=== PATIENT | female | born 1995 | race Caucasian/White ===

== ENCOUNTER 2018-04-25 18:48 | Emergency (ER) | payer MEDICAID ==
[2018-04-25] MEDS: KETOROLAC 30 MG INJ IV (20:56)
[2018-04-25] MEDS: LACTATED RINGER'S 1,000 ML IV (22:00)
[2018-04-25] MEDS: ONDANSETRON 4 MG INJ IV (22:01)
[2018-04-25 22:32] LABS: ADD MAN DIFF? NO
[2018-04-25 22:34] LABS: WHITE BLOOD COUNT 11.3 10^3/ul (4.8-10.8)
[2018-04-25 22:34] LABS: BASOPHILS % 0.2 % (0.0-2.0); EOSINOPHILS # 0.2 10^3/ul (0.0-0.5); EOSINOPHILS % 1.6 % (0.0-7.0); HEMATOCRIT 44.2 % (37.0-47.0); HEMOGLOBIN 14.8 g/dl (12.0-16.0); LYMPHOCYTES # 2.3 10^3/ul (0.8-2.9); LYMPHOCYTES % 20.2 % (15.0-51.0); MEAN CORPUSCULAR HEMOGLOBIN 29.5 pg (29.0-33.0); MEAN CORPUSCULAR HGB CONC 33.5 g/dl (32.0-37.0); MEAN PLATELET VOLUME 10.6 fl (7.4-10.4); MONOCYTE # 0.7 10^3/ul (0.3-0.9); MONOCYTES % 5.8 % (0.0-11.0); NEUTROPHIL # 8.2 10^3/ul (1.6-7.5); NEUTROPHILS % 71.8 % (39.0-77.0); PLATELET COUNT 243 10^3/UL (140-415); RED BLOOD COUNT 5.02 10^6/ul (4.20-5.40); RED CELL DISTRIBUTION WIDTH 12.3 % (11.5-14.5)
[2018-04-25 22:49] LABS: ADD UMIC YES; UR ASCORBIC ACID NEGATIVE (NEGATIVE); UR BACTERIA FEW /HPF (NONE SEEN); UR BILIRUBIN (Dip) NEGATIVE (NEGATIVE); UR BLOOD (Dip) NEGATIVE (NEGATIVE); UR CLARITY SLIGHTLY CLOUDY (CLEAR); UR COLOR YELLOW (YELLOW); UR GLUCOSE (Dip) NEGATIVE (NEGATIVE); UR KETONES (Dip) NEGATIVE (NEGATIVE); UR LEUKOCYTE ESTERASE (Dip) TRACE Leu/ul (NEGATIVE); UR MUCUS MANY /HPF (NONE SEEN); UR NITRITE (Dip) NEGATIVE (NEGATIVE); UR RBC 2 /HPF (0-5); UR SPECIFIC GRAVITY (Dip) 1.029 (1.003-1.030); UR SQUAMOUS EPITHELIAL CELL MODERATE /HPF (FEW); UR TOTAL PROTEIN (Dip) NEGATIVE (NEGATIVE); UR UROBILINOGEN (Dip) 1+ mg/dL (NEGATIVE); UR WBC 3 /HPF (0-5)
[2018-04-25 22:53] LABS: ALANINE AMINOTRANSFERASE 53 IU/L (13-69); ALBUMIN 4.8 g/dl (3.3-4.9); ALKALINE PHOSPHATASE 78 IU/L (42-121); ANION GAP 14 (8-16); ASPARTATE AMINO TRANSFERASE 41 IU/L (15-46); BILIRUBIN,INDIRECT 0.4 mg/dl (0-1.1); BILIRUBIN,TOTAL 0.4 mg/dl (0.2-1.3); BLOOD UREA NITROGEN 12 mg/dl (7-20); CARBON DIOXIDE 25 mmol/L (21-31); CHLORIDE 108 mmol/L (97-110); CREATININE 0.68 mg/dl (0.44-1.00); GLUCOSE 93 mg/dl (70-220); LIPASE 48 U/L (23-300); POTASSIUM 3.6 mmol/L (3.5-5.1); SODIUM 143 mmol/L (135-144)
== END 2018-04-25 23:51 | disposition home or self-care (01) ==
LOC: FTE 18:48
DX: N39.0 Urinary tract infection, site not specified (principal)
CPT/HCPCS: 36415; 76705; 80053; 81001; 81025; 83690; 85025; 96374; 96375; 99285-25

== ENCOUNTER 2018-07-12 18:35 | Emergency (ER) | payer MEDICAID ==
[2018-07-12 19:28] LABS: ADD MAN DIFF? NO
[2018-07-12 19:32] LABS: WHITE BLOOD COUNT 11.5 10^3/ul (4.8-10.8)
[2018-07-12 19:32] LABS: BASOPHILS % 0.3 % (0.0-2.0); EOSINOPHILS # 0.1 10^3/ul (0.0-0.5); EOSINOPHILS % 0.9 % (0.0-7.0); HEMATOCRIT 42.2 % (37.0-47.0); HEMOGLOBIN 13.9 g/dl (12.0-16.0); LYMPHOCYTES % 26.4 % (15.0-51.0); MEAN CORPUSCULAR HGB CONC 32.9 g/dl (32.0-37.0); MEAN CORPUSCULAR VOLUME 88.1 fl (82.0-101.0); MEAN PLATELET VOLUME 10.1 fl (7.4-10.4); MONOCYTE # 0.6 10^3/ul (0.3-0.9); MONOCYTES % 5.5 % (0.0-11.0); NEUTROPHIL # 7.7 10^3/ul (1.6-7.5); NEUTROPHILS % 66.6 % (39.0-77.0); PLATELET COUNT 260 10^3/UL (140-415); RED BLOOD COUNT 4.79 10^6/ul (4.20-5.40); RED CELL DISTRIBUTION WIDTH 12.1 % (11.5-14.5)
[2018-07-12 19:39] LABS: ADD UMIC YES; UR ASCORBIC ACID NEGATIVE (NEGATIVE); UR BACTERIA FEW /HPF (NONE SEEN); UR BILIRUBIN (Dip) NEGATIVE (NEGATIVE); UR BLOOD (Dip) 3+ mg/dL (NEGATIVE); UR CLARITY CLOUDY (CLEAR); UR COLOR YELLOW (YELLOW); UR GLUCOSE (Dip) NEGATIVE (NEGATIVE); UR KETONES (Dip) NEGATIVE (NEGATIVE); UR LEUKOCYTE ESTERASE (Dip) NEGATIVE Leu/ul (NEGATIVE); UR NITRITE (Dip) NEGATIVE (NEGATIVE); UR RBC 5 /HPF (0-5); UR SPECIFIC GRAVITY (Dip) 1.026 (1.003-1.030); UR SQUAMOUS EPITHELIAL CELL MODERATE /HPF (FEW); UR TOTAL PROTEIN (Dip) NEGATIVE (NEGATIVE); UR UROBILINOGEN (Dip) 1+ mg/dL (NEGATIVE); UR WBC 12 /HPF (0-5)
[2018-07-12 19:51] LABS: INR 0.94; PARTIAL THROMBOPLASTIN TIME 26.6 Sec (23.0-35.0); PROTIME 12.7 Sec (11.9-14.9)
[2018-07-12 19:52] LABS: ALANINE AMINOTRANSFERASE 32 IU/L (13-69); ALBUMIN 4.2 g/dl (3.3-4.9); ALBUMIN/GLOBULIN RATIO 1.13; ALKALINE PHOSPHATASE 79 IU/L (42-121); ANION GAP 8 (5-13); ASPARTATE AMINO TRANSFERASE 28 IU/L (15-46); BILIRUBIN,INDIRECT 0.3 mg/dl (0-1.1); BILIRUBIN,TOTAL 0.3 mg/dl (0.2-1.3); BLOOD UREA NITROGEN 18 mg/dl (7-20); CALCIUM 9.7 mg/dl (8.4-10.2); CARBON DIOXIDE 29 mmol/L (21-31); CHLORIDE 104 mmol/L (97-110); CREATININE 0.99 mg/dl (0.44-1.00); GLUCOSE 100 mg/dl (70-220); LIPASE 58 U/L (23-300); POTASSIUM 3.9 mmol/L (3.5-5.1); SODIUM 141 mmol/L (135-144); TOTAL PROTEIN 7.9 g/dl (6.1-8.1)
== END 2018-07-12 20:38 | disposition home or self-care (01) ==
LOC: FTE 18:35
DX: N93.9 Abnormal uterine and vaginal bleeding, unspecified (principal); N92.1 Excessive and frequent menstruation with irregular cycle
CPT/HCPCS: 76830; 76856; 80053; 81001; 81025; 83690; 85025; 85610; 85730; 87086; 99284-25

== ENCOUNTER 2018-08-10 05:52 | Emergency (ER) | payer MEDICAID ==
[2018-08-10] MEDS: FAMOTIDINE 20 MG INJ IV (06:29)
[2018-08-10] MEDS: ONDANSETRON 4 MG INJ IV ×2 (06:29→09:26)
[2018-08-10] MEDS: SOD CHLORIDE 0.9% 1,000 ML IV (06:29)
[2018-08-10 06:33] LABS: ADD MAN DIFF? NO
[2018-08-10 06:34] LABS: WHITE BLOOD COUNT 12.4 10^3/ul (4.8-10.8)
[2018-08-10 06:34] LABS: BASOPHILS % 0.2 % (0.0-2.0); EOSINOPHILS # 0.2 10^3/ul (0.0-0.5); EOSINOPHILS % 1.4 % (0.0-7.0); HEMATOCRIT 44.3 % (37.0-47.0); HEMOGLOBIN 14.7 g/dl (12.0-16.0); LYMPHOCYTES # 1.3 10^3/ul (0.8-2.9); LYMPHOCYTES % 10.1 % (15.0-51.0); MEAN CORPUSCULAR HEMOGLOBIN 29.3 pg (29.0-33.0); MEAN CORPUSCULAR HGB CONC 33.2 g/dl (32.0-37.0); MEAN CORPUSCULAR VOLUME 88.4 fl (82.0-101.0); MEAN PLATELET VOLUME 9.7 fl (7.4-10.4); MONOCYTE # 0.7 10^3/ul (0.3-0.9); MONOCYTES % 5.8 % (0.0-11.0); NEUTROPHIL # 10.2 10^3/ul (1.6-7.5); PLATELET COUNT 253 10^3/UL (140-415); RED BLOOD COUNT 5.01 10^6/ul (4.20-5.40); RED CELL DISTRIBUTION WIDTH 12.2 % (11.5-14.5)
[2018-08-10] MEDS: KETOROLAC 30 MG INJ IV (06:42)
[2018-08-10 06:48] LABS: ADD UMIC YES; UR ASCORBIC ACID NEGATIVE (NEGATIVE); UR BACTERIA FEW /HPF (NONE SEEN); UR BILIRUBIN (Dip) NEGATIVE (NEGATIVE); UR BLOOD (Dip) NEGATIVE (NEGATIVE); UR CLARITY SLIGHTLY CLOUDY (CLEAR); UR COLOR YELLOW (YELLOW); UR GLUCOSE (Dip) NEGATIVE (NEGATIVE); UR KETONES (Dip) NEGATIVE (NEGATIVE); UR LEUKOCYTE ESTERASE (Dip) 1+ Leu/ul (NEGATIVE); UR MUCUS FEW /HPF (NONE SEEN); UR NITRITE (Dip) NEGATIVE (NEGATIVE); UR RBC 4 /HPF (0-5); UR SPECIFIC GRAVITY (Dip) 1.023 (1.003-1.030); UR SQUAMOUS EPITHELIAL CELL FEW /HPF (FEW); UR TOTAL PROTEIN (Dip) NEGATIVE (NEGATIVE); UR UROBILINOGEN (Dip) NEGATIVE (NEGATIVE); UR WBC 5 /HPF (0-5)
[2018-08-10 06:57] LABS: INR 0.91; PROTIME 12.3 Sec (11.9-14.9)
[2018-08-10 06:58] LABS: ALANINE AMINOTRANSFERASE 32 IU/L (13-69); ALBUMIN 4.4 g/dl (3.3-4.9); ALBUMIN/GLOBULIN RATIO 1.22; ALKALINE PHOSPHATASE 96 IU/L (42-121); AMYLASE 81 U/L (11-123); ANION GAP 10 (5-13); ASPARTATE AMINO TRANSFERASE 31 IU/L (15-46); BILIRUBIN,INDIRECT 0.5 mg/dl (0-1.1); BILIRUBIN,TOTAL 0.5 mg/dl (0.2-1.3); BLOOD UREA NITROGEN 17 mg/dl (7-20); CALCIUM 8.4 mg/dl (8.4-10.2); CARBON DIOXIDE 25 mmol/L (21-31); CHLORIDE 106 mmol/L (97-110); CREATININE 0.61 mg/dl (0.44-1.00); Estimated GFR > 60 mL/min (>60); GLUCOSE 105 mg/dl (70-220); LIPASE 39 U/L (23-300); PARTIAL THROMBOPLASTIN TIME 27.5 Sec (23.0-35.0); POTASSIUM 4.2 mmol/L (3.5-5.1); SODIUM 141 mmol/L (135-144)
[2018-08-10] MEDS: DIPHENOXYLATE/ATROPINE TAB PO (07:20)
[2018-08-10] MEDS: SOD CHLORIDE 0.9% 100 ML (07:30)
[2018-08-10] MEDS: IOHEXOL 300MG/ML 150 ML BTL (07:30)
[2018-08-10] MEDS: METOCLOPRAMIDE 10 MG INJ IV (08:20)
[2018-08-10] MEDS: morphine 4 MG/ML VIAL IV (09:26)
== END 2018-08-10 09:42 | disposition home or self-care (01) ==
LOC: FTE 05:52
DX: R11.10 Vomiting, unspecified (principal); R19.7 Diarrhea, unspecified; E86.0 Dehydration
CPT/HCPCS: 36415; 74177; 76856; 80053; 81001; 81025; 82150; 83690; 85025; 85610; 85730; 96361; 96374; 96375; 96376; 99285-25

== ENCOUNTER 2018-12-28 18:40 | Observation (INO) | payer MEDICAID ==
[2018-12-28 20:14] LABS: ADD MAN DIFF? NO
[2018-12-28 20:25] LABS: ADD UMIC NO; UR ASCORBIC ACID NEGATIVE (NEGATIVE); UR BILIRUBIN (Dip) NEGATIVE (NEGATIVE); UR BLOOD (Dip) NEGATIVE (NEGATIVE); UR CLARITY CLEAR (CLEAR); UR COLOR STRAW (YELLOW); UR GLUCOSE (Dip) NEGATIVE (NEGATIVE); UR KETONES (Dip) NEGATIVE (NEGATIVE); UR LEUKOCYTE ESTERASE (Dip) NEGATIVE Leu/ul (NEGATIVE); UR NITRITE (Dip) NEGATIVE (NEGATIVE); UR SPECIFIC GRAVITY (Dip) 1.005 (1.003-1.030); UR TOTAL PROTEIN (Dip) NEGATIVE (NEGATIVE); UR UROBILINOGEN (Dip) NEGATIVE (NEGATIVE)
[2018-12-28 20:34] LABS: ALANINE AMINOTRANSFERASE 19 IU/L (13-69); ALBUMIN 3.8 g/dl (3.3-4.9); ALBUMIN/GLOBULIN RATIO 1.18; ALKALINE PHOSPHATASE 73 IU/L (42-121); ANION GAP 10 (5-13); ASPARTATE AMINO TRANSFERASE 20 IU/L (15-46); BILIRUBIN,INDIRECT 0.2 mg/dl (0-1.1); BILIRUBIN,TOTAL 0.2 mg/dl (0.2-1.3); BLOOD UREA NITROGEN 9 mg/dl (7-20); CALCIUM 9.3 mg/dl (8.4-10.2); CARBON DIOXIDE 24 mmol/L (21-31); CHLORIDE 104 mmol/L (97-110); CREATININE 0.48 mg/dl (0.44-1.00); Estimated GFR > 60 mL/min (>60); GLUCOSE 83 mg/dl (70-220); LIPASE 59 U/L (23-300); POTASSIUM 4.1 mmol/L (3.5-5.1); SODIUM 138 mmol/L (135-144)
[2018-12-28 20:36] LABS: WHITE BLOOD COUNT 10.5 10^3/ul (4.8-10.8)
[2018-12-28 20:36] LABS: BASOPHILS % 0.4 % (0.0-2.0); EOSINOPHILS # 0.1 10^3/ul (0.0-0.5); EOSINOPHILS % 0.8 % (0.0-7.0); HEMATOCRIT 36.4 % (37.0-47.0); HEMOGLOBIN 12.3 g/dl (12.0-16.0); LYMPHOCYTES % 18.7 % (15.0-51.0); MEAN CORPUSCULAR HEMOGLOBIN 29.7 pg (29.0-33.0); MEAN CORPUSCULAR HGB CONC 33.8 g/dl (32.0-37.0); MEAN CORPUSCULAR VOLUME 87.9 fl (82.0-101.0); MEAN PLATELET VOLUME 10.1 fl (7.4-10.4); MONOCYTE # 0.7 10^3/ul (0.3-0.9); MONOCYTES % 6.4 % (0.0-11.0); NEUTROPHIL # 7.7 10^3/ul (1.6-7.5); NEUTROPHILS % 73.4 % (39.0-77.0); PLATELET COUNT 253 10^3/UL (140-415); RED BLOOD COUNT 4.14 10^6/ul (4.20-5.40); RED CELL DISTRIBUTION WIDTH 12.2 % (11.5-14.5)
[2018-12-28 20:44] LABS: TROPONIN-I < 0.012 ng/ml (0.000-0.120)
[2018-12-28] MEDS ORDERED: IOHEXOL 100 ML (21:02)
[2018-12-28] MEDS ORDERED: SOD CHLORIDE 0.9% 100 ML (21:02)
[2018-12-28] MEDS ORDERED: BISACODYL (EC) 5 MG TAB PO (23:30)
[2018-12-28] MEDS: SOD CHLORIDE 0.9% 500 ML IV (23:30)
[2018-12-28] MEDS ORDERED: DOCUSATE SODIUM 100 MG CAP PO (23:30)
[2018-12-28] MEDS ORDERED: ONDANSETRON 4 MG INJ IV (23:30)
[2018-12-28] MEDS ORDERED: NACL 0.9% 3 ML SYG IV (23:30)
[2018-12-28] MEDS ORDERED: ACETAMINOPHEN 325 MG TAB PO ×2 (23:30)
[2018-12-29 00:02] LABS: CREATINE KINASE 70 IU/L (23-200)
[2018-12-29 00:15] LABS: CK INDEX 0.6; CK-MB 0.45 ng/ml (0.0-2.4); TROPONIN-I < 0.012 ng/ml (0.000-0.120)
[2018-12-29 06:24] LABS: ADD MAN DIFF? NO
[2018-12-29 06:37] LABS: BASOPHILS % 0.3 % (0.0-2.0); EOSINOPHILS # 0.1 10^3/ul (0.0-0.5); EOSINOPHILS % 0.9 % (0.0-7.0); HEMATOCRIT 34.6 % (37.0-47.0); HEMOGLOBIN 11.8 g/dl (12.0-16.0); LYMPHOCYTES # 1.8 10^3/ul (0.8-2.9); LYMPHOCYTES % 18.1 % (15.0-51.0); MEAN CORPUSCULAR HEMOGLOBIN 30.1 pg (29.0-33.0); MEAN CORPUSCULAR HGB CONC 34.1 g/dl (32.0-37.0); MEAN CORPUSCULAR VOLUME 88.3 fl (82.0-101.0); MEAN PLATELET VOLUME 10.4 fl (7.4-10.4); MONOCYTE # 0.5 10^3/ul (0.3-0.9); MONOCYTES % 5.4 % (0.0-11.0); NEUTROPHIL # 7.3 10^3/ul (1.6-7.5); NEUTROPHILS % 74.8 % (39.0-77.0); PLATELET COUNT 239 10^3/UL (140-415); RED BLOOD COUNT 3.92 10^6/ul (4.20-5.40); RED CELL DISTRIBUTION WIDTH 12.2 % (11.5-14.5)
[2018-12-29 06:37] LABS: WHITE BLOOD COUNT 9.8 10^3/ul (4.8-10.8)
[2018-12-29 06:55] LABS: ALBUMIN/GLOBULIN RATIO 1.22; ANION GAP 11 (5-13); BILIRUBIN,TOTAL 0.2 mg/dl (0.2-1.3); CHOL/HDL RATIO 3.7 RATIO; Estimated GFR > 60 mL/min (>60); LDL CHOLESTEROL,CALCULATED 97 mg/dl
[2018-12-29 06:57] LABS: TROPONIN-I < 0.012 ng/ml (0.000-0.120)
[2018-12-29 07:02] LABS: ALANINE AMINOTRANSFERASE 13 IU/L (13-69); ALBUMIN 3.3 g/dl (3.3-4.9); ALKALINE PHOSPHATASE 60 IU/L (42-121); ASPARTATE AMINO TRANSFERASE 17 IU/L (15-46); BILIRUBIN,INDIRECT 0.2 mg/dl (0-1.1); BLOOD UREA NITROGEN 8 mg/dl (7-20); CARBON DIOXIDE 22 mmol/L (21-31); CHLORIDE 105 mmol/L (97-110); CHOLESTEROL 179 mg/dl (100-200); CK INDEX 0.8; CREATINE KINASE 53 IU/L (23-200); CREATININE 0.49 mg/dl (0.44-1.00); GLUCOSE 97 mg/dl (70-220); HDL CHOLESTEROL 48 mg/dl (33-83); MAGNESIUM 1.7 mg/dl (1.7-2.5); POTASSIUM 3.7 mmol/L (3.5-5.1); SODIUM 138 mmol/L (135-144); TRIGLYCERIDES 171 mg/dl (0-149)
[2018-12-29 08:56] LABS: HEMOGLOBIN A1C 5.2 % (0-5.9)
[2018-12-29] MEDS: SOD CHLORIDE 0.9% 500 ML IV (10:35)
== END 2018-12-30 12:15 | disposition home or self-care (01) ==
LOC: TEL 23:08 → FTE 18:40
DX: O26.892 Other specified pregnancy related conditions, second trimester (principal); Z3A.18 18 weeks gestation of pregnancy; R55 Syncope and collapse; R06.02 Shortness of breath; R07.9 Chest pain, unspecified
CPT/HCPCS: 36415; 71045; 71275; 76805; 80053; 80061; 81003; 82550; 82553; 83036; 83690; 83735; 84443; 84484; 85025; 93005; 93306; 97161; 99285-25; G0378

== ENCOUNTER 2019-05-18 14:14 | Outpatient (CLI) | payer MEDICAID | END 2019-05-18 16:40 | disposition home or self-care (01) | LOC: OBT 14:14 → L-D 14:15 → OBT 16:40 | DX: O62.9 Abnormality of forces of labor, unspecified (principal); Z3A.38 38 weeks gestation of pregnancy | CPT/HCPCS: 76815 ==

== ENCOUNTER 2019-05-19 12:05 | Outpatient (CLI) | payer MEDICAID ==
[2019-05-19] MEDS: ACETAMINOPHEN 500 MG TAB PO (14:45)
== END 2019-05-19 15:10 | disposition home or self-care (01) ==
LOC: OBT 12:05 → L-D 12:05 → OBT 15:10
DX: O62.9 Abnormality of forces of labor, unspecified (principal); Z3A.38 38 weeks gestation of pregnancy
CPT/HCPCS: 76818

== ENCOUNTER 2019-05-24 07:12 | Inpatient (IN) | payer MEDICAID ==
[2019-05-24 09:33] LABS: RUPTURE FETAL MEMBRANES NEGATIVE (NEGATIVE)
[2019-05-24] MEDS ORDERED: METHYLERGONOVINE 0.2 MG INJ IM (10:00)
[2019-05-24] MEDS ORDERED: OXYTOCIN 30 UNITS/LR 500 ML IV ×2 (10:00)
[2019-05-24] MEDS ORDERED: LIDOCAINE 1% (MPF) 30 ML INJ INJ (10:00)
[2019-05-24] MEDS ORDERED: BUTORPHANOL 2 MG INJ IV ×2 (10:00)
[2019-05-24] MEDS ORDERED: MISOPROSTOL 200 MCG TAB PR (10:00)
[2019-05-24] MEDS ORDERED: CARBOPROST 250 MCG INJ IM (10:00)
[2019-05-24] MEDS: LACTATED RINGER'S 1,000 ML IV ×4 (11:14→21:06)
[2019-05-24 11:25] LABS: ADD MAN DIFF? NO
[2019-05-24 11:27] LABS: WHITE BLOOD COUNT 8.5 10^3/ul (4.8-10.8)
[2019-05-24 11:27] LABS: BASOPHILS % 0.4 % (0.0-2.0); EOSINOPHILS % 0.5 % (0.0-7.0); HEMOGLOBIN 11.5 g/dl (12.0-16.0); LYMPHOCYTES # 1.5 10^3/ul (0.8-2.9); LYMPHOCYTES % 18.1 % (15.0-51.0); MEAN CORPUSCULAR HEMOGLOBIN 26.2 pg (29.0-33.0); MEAN CORPUSCULAR HGB CONC 31.1 g/dl (32.0-37.0); MEAN CORPUSCULAR VOLUME 84.3 fl (82.0-101.0); MEAN PLATELET VOLUME 10.3 fl (7.4-10.4); MONOCYTE # 0.5 10^3/ul (0.3-0.9); MONOCYTES % 5.9 % (0.0-11.0); NEUTROPHIL # 6.4 10^3/ul (1.6-7.5); NEUTROPHILS % 74.5 % (39.0-77.0); PLATELET COUNT 248 10^3/UL (140-415); RED BLOOD COUNT 4.39 10^6/ul (4.20-5.40); RED CELL DISTRIBUTION WIDTH 13.8 % (11.5-14.5)
[2019-05-24 11:47] LABS: PROTIME 12.3 Sec (11.9-14.9)
[2019-05-24 11:48] LABS: PARTIAL THROMBOPLASTIN TIME 25.8 Sec (23.0-35.0)
[2019-05-24 12:48] LABS: HEPATITIS B SURFACE ANTIGEN NEGATIVE (NEGATIVE)
[2019-05-24] MEDS: OXYTOCIN 30 UNITS/LR 500 ML IV (12:50)
[2019-05-24 15:36] LABS: RAPID PLASMA REAGIN NONREACTIVE (NR)
[2019-05-24] MEDS ORDERED: FENTAnyl 2MCG/ML-ROPIV 0.2% 100 ML (20:54)
[2019-05-24] MEDS ORDERED: NALOXONE (0.4 MG/ML) INJ IV (21:30)
[2019-05-24] MEDS ORDERED: FENTAnyl 2MCG/ML-ROPIV 0.2% 100 ML BAG EPI (21:30)
[2019-05-25] MEDS: OXYTOCIN 30 UNITS/LR 500 ML IV ×3 (03:44→16:35)
[2019-05-25] MEDS ORDERED: MISOPROSTOL 200 MCG TAB PR (04:00)
[2019-05-25] MEDS ORDERED: CARBOPROST 250 MCG INJ IM (04:00)
[2019-05-25] MEDS ORDERED: OXYTOCIN 30 UNITS/LR 500 ML IV (04:00)
[2019-05-25] MEDS ORDERED: METHYLERGONOVINE 0.2 MG INJ IM (04:00)
[2019-05-25] MEDS: LACTATED RINGER'S 1,000 ML IV* ×3 (04:17→20:00)
[2019-05-25] MEDS: IBUPROFEN 600 MG TAB PO ×3 (06:39→17:15)
[2019-05-25] MEDS: BENZOCAINE 20% 56 ML SPRAY TOP (06:40)
[2019-05-25] MEDS: HYDROCODONE/APAP (5/325) TAB PO ×3 (06:40→21:21)
[2019-05-26] MEDS: HYDROCODONE/APAP (5/325) TAB PO (01:37)
[2019-05-26] MEDS: IBUPROFEN 600 MG TAB PO ×5 (01:37→23:50)
[2019-05-26] MEDS: LACTATED RINGER'S 1,000 ML IV* (03:52)
[2019-05-26] MEDS: LANOLIN HPA 1 PKT TOP (08:30)
[2019-05-26 08:52] LABS: ADD MAN DIFF? NO
[2019-05-26 08:55] LABS: WHITE BLOOD COUNT 8.1 10^3/ul (4.8-10.8)
[2019-05-26 08:55] LABS: BASOPHILS % 0.4 % (0.0-2.0); EOSINOPHILS # 0.3 10^3/ul (0.0-0.5); EOSINOPHILS % 3.1 % (0.0-7.0); HEMATOCRIT 31.4 % (37.0-47.0); LYMPHOCYTES # 1.4 10^3/ul (0.8-2.9); LYMPHOCYTES % 17.3 % (15.0-51.0); MEAN CORPUSCULAR HEMOGLOBIN 27.2 pg (29.0-33.0); MEAN CORPUSCULAR HGB CONC 31.8 g/dl (32.0-37.0); MEAN CORPUSCULAR VOLUME 85.6 fl (82.0-101.0); MEAN PLATELET VOLUME 10.9 fl (7.4-10.4); MONOCYTE # 0.5 10^3/ul (0.3-0.9); MONOCYTES % 5.7 % (0.0-11.0); NEUTROPHIL # 5.9 10^3/ul (1.6-7.5); NEUTROPHILS % 73.1 % (39.0-77.0); PLATELET COUNT 225 10^3/UL (140-415); RED BLOOD COUNT 3.67 10^6/ul (4.20-5.40); RED CELL DISTRIBUTION WIDTH 14.2 % (11.5-14.5)
[2019-05-26] MEDS: ASCORBIC ACID 500 MG TAB PO (15:55)
[2019-05-26] MEDS: FERROUS SULFATE (EC) 325 MG TAB PO (15:55)
[2019-05-27] MEDS: IBUPROFEN 600 MG TAB PO ×2 (05:05→12:34)
[2019-05-27] MEDS: DIPHTH/TET/ACEL PERTUSS (ADULT) 0.5 ML VIAL IM* (09:00)
[2019-05-27] MEDS: ASCORBIC ACID 500 MG TAB PO (09:45)
[2019-05-27] MEDS: FERROUS SULFATE (EC) 325 MG TAB PO (09:45)
[2019-05-27] MEDS: HYDROCODONE/APAP (5/325) TAB PO (10:52)
== END 2019-05-27 14:00 | disposition home or self-care (01) | DRG 806 ==
LOC: OBT 07:12 → PP1 05-25 05:18 → L-D 07:12 → OBT 09:54 → L-D 09:54
PROVIDERS: Obstetrics & Gynecology
PROC: 10E0XZZ Delivery of Products of Conception, External Approach (ICD-10-PCS; principal; 2019-05-25)
PROC: 0KQM0ZZ Repair Perineum Muscle, Open Approach (ICD-10-PCS; 2019-05-25)
DX: O99.214 Obesity complicating childbirth (principal); D62 Acute posthemorrhagic anemia; Z37.0 Single live birth; E66.9 Obesity, unspecified; O70.1 Second degree perineal laceration during delivery; Z3A.39 39 weeks gestation of pregnancy; O90.81 Anemia of the puerperium
CPT/HCPCS: 62322; 76818; 84112; 85025; 85610; 85730; 86592; 86850; 86900; 86901; 87340